=== PATIENT | male | born 1960 | race Caucasian/White ===

== ENCOUNTER → 2016-04-17 | Outpatient (CLI) | payer OTHER ==
[~2016-04-17] MED LIST: CIPR500T3 PO; HYDR-3713 PO; ISOVUE-370 76% 100ML VIAL (Q9967) As Ordered ONE; PERCOCET PO
--- NOTE | 2016-04-17 15:18 | REP ---
CT ABDOMEN/PELVIS WITH AND WITHOUT IV CONTRAST: TECHNIQUE: Axial noncontrast images through the abdomen followed by contrast-enhanced images through the abdomen and pelvis using 100 mL Isovue 370 intravenous contrast material, with coronal and sagittal reformations. The visualized lung bases appear clear. There does appear to be a small lymph node at the right cardiophrenic angle measuring approximately 8 mm in short-axis dimension. Heart is not enlarged. Liver demonstrates several small cysts. Patient has had a cholecystectomy. Multiple metallic clips are seen in the gallbladder fossa, and a few are also seen in the region of the varun hepatis. Spleen is normal in size with no intrinsic abnormality. There is a right adrenal adenoma measuring 2.8 x 1.9 cm. Pancreas and right kidney are unremarkable. Left kidney demonstrates a cyst in the mid aspect measuring approximately 4.2 cm in maximum diameter. There is moderate left hydronephrosis with abrupt change in caliber of the collecting system at the ureteropelvic junction ,consistent with UPJ obstruction. On delayed renal images, there is passage of excreted contrast into the right ureter but not the left. Please note a prior renal scan, 10/05/2015, did show similar findings but with administration of Lasix, there was some clearance of tracer from the dilated left pelvicaliceal system consistent with incomplete UPJ obstruction. There is moderate atherosclerotic calcification of the abdominal aorta without aneurysm. I see no significant adenopathy. There is no free air or free fluid. There is no bowel wall thickening. The appendix is normal and is seen in a subhepatic location. There is sigmoid and left colonic diverticulosis without evidence of acute diverticulitis. No pelvic mass is seen. Urinary bladder is not well distended. Bladder wall appears somewhat thickened diffusely, but this could be due to its contracted state. There appears to be a tiny ventral hernia just above the umbilicus containing a tiny amount of fat. There is a tiny right renal cyst incidentally noted. IMPRESSION: Subcentimeter lymph node in the right cardiophrenic angle is of doubtful significance. Tiny ventral hernia in a supraumbilical location in the midline of the anterior abdominal wall contains a tiny amount of fat. Findings compatible with left UPJ obstruction with moderate left hydronephrosis. There is a left renal cyst. Several scattered small liver cysts are seen as well as a tiny cyst in the right kidney. Sigmoid diverticulosis without acute diverticulitis. Signed by Markell Alonzo MD 04/17/2016 04:45 P
== END ==
LOC: M RAD 13:40
PROVIDERS: ATTEND Urology
DX: N13.5 Crossing vessel and stricture of ureter without hydronephrosis (principal)

== ENCOUNTER → 2016-05-07 | Outpatient (CLI) | payer OTHER ==
[~2016-05-07] MED LIST changes: +FUROSEMIDE 20 MG/2 ML VIAL (J1940) As Ordered ONE; -ISOVUE-370 76% 100ML VIAL (Q9967) As Ordered ONE
--- NOTE | 2016-05-07 15:12 | REP ---
NUCLEAR RENAL SCINTIGRAPHY WITH DIFFERENTIAL RENAL FUNCTION ANALYSIS AND POST LASIX WASHOUT VENOGRAPHY: 05/07/2016 CLINICAL HISTORY: Hydronephrosis, UPJ obstruction on the left. Lower pole renal cyst on the left on CT scan corresponding to photopenic area on the nuclear scan. COMPARISON: Nuclear renal scan 10/05/2015, CT abdomen and pelvis 04/17/2016. FINDINGS: TECHNIQUE: The patient received 8.3 mCi technetium 99m Mag 3 with posterior flow and excretory phase imaging performed. Region of interest about the renal cortex and time activity washout curves plotted for functional analysis. The patient then received 20 mg IV Lasix for post Lasix scanning with functional analysis repeated. The flow images show prompt symmetric perfusion of both kidneys. The left kidney is slightly larger than the right. A photopenic area peripherally in the interpolar lower pole junction of the left kidney corresponds to the prominent cyst seen on ultrasound. There is also photopenia in the central zone of the left kidney consistent with hydronephrosis and dilated collecting system. The split renal function shows left kidney 54.2%; the right 45.8%. Time of maximum activity is 2 minutes for each kidney. Time of half maximum is greater than 30 minutes on the left 10.6 minutes on the right, which is normal. Gosper of the washout curves show normal right kidney washout with a plateau to the left kidney washout as on the previous study. The post Lasix t-1/2 on the left is 13 minutes on the right 11 minutes, much improved on that left side with Lasix. IMPRESSION: 1. Findings compatible with a ureteropelvic junction obstruction on the left which largely corrects the functional limitation with application of IV Lasix. Photopenia in the nephrogram in the lower pole laterally represents the cyst seen on CT. 2. Differential function shows left kidney 54.2% of the counts, right 45.8%. No significant interval change. Signed by Rafael Shafer MD 05/07/2016 05:11 P
== END ==
LOC: M RAD 10:03
PROVIDERS: ATTEND Urology
DX: N13.39 Other hydronephrosis (principal)